=== PATIENT | male | born 1950 | race Caucasian/White ===

== ENCOUNTER 2017-04-06 11:58 | Day surgery (SDC) | payer OTHER ==
[~2017-04-06] VITALS: Ht 165.1 cm; Wt 74.8 kg
[~2017-04-06 11:58] MED LIST: LEVO75TA4 PO; Sodium Chloride LOK Flush 10 mL Syringe IV PRN; fentaNYL-PF 50 mCg/mL 2 mL Inj IVPUSH PRN
[2017-04-06 12:28] VITALS: BP 126/91; PULSE 70; RESP 16; O2SAT 97
[2017-04-06] MEDS ORDERED: 0.9% Sodium Chloride 1,000 ML IV ONE (12:35)
--- NOTE | 2017-04-06 13:27 | PCM.ENDCOL ---
Colonoscopy Date of Service: Apr 06, 2017 Physician Lenny Gaytan MD Pre Procedure Diagnosis: Screening Post Procedure Dx & Findings: Polyp hemorrhoids diverticula Procedure Colonoscopy PROCEDURE IN DETAIL: Prep adequate Withdrawal time 10 minutes After unremarkable rectal examination the Olympus video colonoscope was inserted patient's anal canal and was advanced to cecum. Landmarks were identified including the ileocecal valve and appendiceal orifice. Scope was withdrawn systematically. Visualized colonic mucosa showed healthy shiny mucosa with normal healthy-appearing vasculature. In the ascending colon, there was a 3 mm polyp which was removed completely using cold snare. There was a 1 cm AVM in the ascending colon which was not bleeding. Patient also had several diverticuliti small to medium size in the sigmoid colon. The patient also had isolated diverticuli up to the cecum. In the rectum retroflexion was done which showed hemorrhoids. Anal canal was inspected carefully on the way out and hemorrhoids noted. Impression Polyp 1 status post complete removal Diverticuli AVM Hemorrhoids Recommendation Repeat colonoscopy 5 years Diverticular diet Presedation Assessment Risks and Benefits Informed consent was obtained from the patient after all risks and benefits including but not limited to drug reaction, infection, pain, bleeding, perforation, as well as alternatives were discussed. Patient monitoring Continuous pulse oximetry, cardiac monitoring, blood pressure monitoring, IV access, and oxygen at 2L per nasal cannula. Periprocedural Fentanyl: Fentanyl 75mcg Incrementally Midazolam: Midazolam 3mg Incrementally Complications There were no periprocedural complications identified. Post Procedure Plan Post Procedure Recommendations 1. Restrict activities today. 2. Resume normal activities in the morning. 3. Resume medications. 4. Patient informed of normal post procedure side effects as bloating, drowsiness, blood streaking in the stool. 5. average risk CRCS. If colon polyps come back as: -Hyperplastic- can repeat colonoscopy in 10 years -Tubular adenoma- repeat colonoscopy in 5 years -Tubulovillous/villous adenoma- repeat colonoscopy in 3 years -If any dysplasia- return to clinic as soon as possible 6. Please don't hesitate to call me with any questions. Lenny Gaytan MD Apr 06, 2017 13:27
[2017-04-06 13:28] VITALS: BP 125/83; PULSE 84; RESP 17; O2SAT 92
[2017-04-06 13:41] VITALS: BP 108/74; PULSE 81; RESP 15; O2SAT 95
--- NOTE | 2017-04-07 15:35 | PATH ---
SURGICAL PATHOLOGY Attending Physician:Lenny Gaytan M.D. CASE STATUS: Signed Out PATIENT NAME: LOPEZ AGUSTIN PID: [id number] : 1950 DATE COLLECTED:04/06/2017 22:38 SPECIMEN: Colon, Polyp CLINICAL HISTORY: 1). 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 ICD10 D12.2 GROSS DESCRIPTION: Received in formalin, labeled with the patient' s name and "ascending colon polyp", are four fragments of stinson, soft tissue ranging in size from 0.1 x 0.1 x 0.1 cm to 0.2 x 0.1 x 0.1 cm. All fragments are totally submitted in cassette 1A. ([id number]) MICRO DESCRIPTION: See diagnosis. ICD-9 CODES: CPT CODES: 1: 90273 Electronically Signed Out Cody Waller MD [facility] Pathology [facility] [address], [place] [address] Technical component performed at [facility], [facility] [address], [place], [address]
== END 2017-04-06 23:59 | disposition home or self-care (01) ==
LOC: END 11:58
PROVIDERS: ATTEND Internal Medicine
DX: Z12.11 Encounter for screening for malignant neoplasm of colon (principal); D12.2 Benign neoplasm of ascending colon; E03.9 Hypothyroidism, unspecified; K21.9 Gastro-esophageal reflux disease without esophagitis; Z87.891 Personal history of nicotine dependence; E78.2 Mixed hyperlipidemia; G62.9 Polyneuropathy, unspecified
CPT/HCPCS: 45385; 99153; G0500; J7030